=== PATIENT | male | born 1970 ===

== ENCOUNTER → 2020-07-05 | Outpatient (CLI) | payer OTHER ==
[~2020-07-05] MED LIST: ATOR20 PO; LISI20 PO; Percocet 5-3251 EACH PO
== END | disposition home or self-care (01) ==
LOC: LAB 14:25 → LAB SHORT 14:25
DX: J06.9 Acute upper respiratory infection, unspecified (principal); Z20.828 Contact with and (suspected) exposure to other viral communicable diseases
CPT/HCPCS: U0003